=== PATIENT | male | born 1960 | race Caucasian/White ===

== ENCOUNTER 2018-07-14 10:03 | Emergency (ER) | payer OTHER ==
[~2018-07-14] VITALS: Ht 175.3 cm; Wt 75.0 kg
[~2018-07-14 10:03] MED LIST: CYCL10 PO
[2018-07-14] MEDS ORDERED: IBUPROFEN 800 MG TABLET PO ONE (13:00)
[2018-07-14 13:40] VITALS: BP 127/85
== END 2018-07-14 13:42 | disposition home or self-care (01) ==
LOC: EMS 10:04
DX: L03.114 Cellulitis of left upper limb (principal); I10 Essential (primary) hypertension; E11.9 Type 2 diabetes mellitus without complications

== ENCOUNTER 2023-09-22 18:37 | Emergency (ER) | payer OTHER ==
[~2023-09-22] VITALS: Ht 177.8 cm; Wt 75.0 kg
[~2023-09-22 18:37] MED LIST changes: +CYCL-448 PO; -CYCL10 PO
[2023-09-22 18:40] VITALS: BP 144/61; PULSE 122; RESP 18; TEMP 100.4
[2023-09-22] MEDS ORDERED: 0.9% SODIUM CHLORIDE 10 ML SYRINGE IVP PRN (19:30)
[2023-09-22] MEDS ORDERED: ACETAMINOPHEN 1000 MG/ISO-OSM 100 ML IV ONE (20:15)
[2023-09-22] MEDS ORDERED: SODIUM CHLORIDE 0.9% 1,000 ML IV ONE (20:15)
== END 2023-09-22 20:16 | disposition left against medical advice (07) ==
LOC: EMS 18:38
DX: R53.1 Weakness (principal); Z53.21 Procedure and treatment not carried out due to patient leaving prior to being seen by health care provider
CPT/HCPCS: 93005; 99281; Z7502